=== PATIENT | female | born 1985 ===

== ENCOUNTER 2025-02-25 06:26 | Day surgery (SDC) | payer BC, SELFPAY | END 2025-02-25 11:06 | disposition home or self-care (01) | LOC: GI 06:26 | PROVIDERS: ATTENDING PHYSICIAN Internal Medicine Gastroenterology | DX: R19.4 Change in bowel habit (principal); R12 Heartburn; K44.9 Diaphragmatic hernia without obstruction or gangrene; K21.00 Gastro-esophageal reflux disease with esophagitis, without bleeding; K22.89 Other specified disease of esophagus; K63.5 Polyp of colon; K63.9 Disease of intestine, unspecified | CPT/HCPCS: 45385; 43239; 88305; 88342 ==